=== PATIENT | female | born 1960 | race Caucasian/White ===

== ENCOUNTER 2019-11-17 13:35 | Emergency (ER) | payer OTHER ==
[~2019-11-17] VITALS: Ht 162.6 cm; Wt 65.8 kg
[2019-11-17 16:17] LABS: BASOPHILS 1.5 % (0.0-2.0); EOSINOPHILS 0.8 % (0.0-3.0); HEMATOCRIT 41.1 % (37.0-47.0); HEMOGLOBIN 13.8 gm/dL (12.0-15.0); LYMPHOCYTES 27.6 % (24.0-44.0); MCH 30.6 pg (26.0-34.0); MCHC 33.5 g/dL (28.0-37.0); MCV 91.4 fL (80.0-100.0); MONOCYTES 10.2 % (1.0-8.0); PLATELET COUNT 213 thou/uL (150-400); POLYS 59.9 % (36.0-66.0); RDW 12.6 % (10.5-14.5); WBC 6.7 thou/uL (4.0-11.0)
[2019-11-17 16:29] LABS: ANION GAP 9 mmol/L (7-16); BUN 12 mg/dL (7-18); CALCIUM 9.1 mg/dL (8.5-10.1); CHLORIDE 104 mmol/L (98-107); CO2 25 mmol/L (21-32); CREATININE 0.8 mg/dL (0.6-1.0); GLUCOSE 86 mg/dL (74-106); POTASSIUM 4.1 mmol/L (3.5-5.1); SODIUM 138 mmol/L (136-145)
[2019-11-17 16:40] LABS: APTT 25.7 Seconds (24.5-32.8); PROTIME 10.2 Seconds (9.3-11.4)
[2019-11-17 16:45] LABS: DIRECT BILIRUBIN < 0.1 mg/dL (<0.1-0.2); SGOT 29 U/L (15-37); SGPT 26 U/L (30-65); TOTAL BILIRUBIN 0.5 mg/dL (0.2-1.0); TOTAL PROTEIN 7.1 g/dL (6.4-8.2)
[2019-11-17 21:08] LABS: HEMATOCRIT 37.3 % (37.0-47.0); HEMOGLOBIN 12.8 gm/dL (12.0-15.0); MCH 31.2 pg (26.0-34.0); MCHC 34.3 g/dL (28.0-37.0); RBC 4.1 mil/uL (4.20-5.00); RDW 12.7 % (10.5-14.5); WBC 9.5 thou/uL (4.0-11.0)
[2019-11-17 21:21] LABS: CALCIUM 8.5 mg/dL (8.5-10.1); CREATININE 0.9 mg/dL (0.6-1.0)
[2019-11-17 21:23] LABS: FIBRINOGEN 265.3 mg/dL (210-360); PROTIME 10.7 Seconds (9.3-11.4)
[2019-11-17 21:24] LABS: ALBUMIN 3.4 g/dL (3.4-5.0); TOTAL BILIRUBIN 0.4 mg/dL (0.2-1.0); TOTAL PROTEIN 6.4 g/dL (6.4-8.2)
[2019-11-17] MEDS ORDERED: TRAMADOL 50 MG50 MG PO (21:52)
[2019-11-17] MEDS ORDERED: NAPROSYN500 MG PO (21:52)
[2019-11-17 22:10] VITALS: BP 117/52
--- NOTE | 2019-11-18 08:25 | EKG ---
[facility] [place] [address] ELECTROCARDIOGRAM REPORT Name: DENYS DUEÑAS Room #: DEP [facility]#: [id number] Admission: 11/17/19 Attend Phys: Discharge: 11/17/19 Date of : 56 Report #: [id number] THIS REPORT FOR: cc: FAM - Family physician unknown FAM - Family physician unknown Pepito Alfredo MD [facility] THIS REPORT FOR: //name// [facility] ED Test Date: 2019-11-17 Test Time: 15:07:45 Pat Name: DENYS DUEÑAS Department: Room: Gender: Sales Director: [email or web address] : 1960 Requested By: Samir Gutierrez Order Number: [id number] MD: Pepito Alfredo Measurements Intervals [place] Rate: 74 P: 79 LA: 143 QRS: 74 QRSD: 214 T: 42 QT: 407 QTc: 452 Interpretive Statements Sinus rhythm No significant abnormality No previous ECG available for comparison Electronically Signed On 11-18-2019 8:22:59 CDT by Pepito Alfredo [email or web address] <ELECTRONICALLY SIGNED> By: Pepito Alfredo MD, [facility] 11/18/1922 1507 [id number] Pepito Alfredo MD, FACC /EPI
== END 2019-11-17 22:19 | disposition home or self-care (01) ==
LOC: ER 13:35
PROVIDERS: Emergency Medicine
DX: S60.562A Insect bite (nonvenomous) of left hand, initial encounter (principal); L03.114 Cellulitis of left upper limb; F12.90 Cannabis use, unspecified, uncomplicated; Z88.8 Allergy status to other drugs, medicaments and biological substances; W57.XXXA Bitten or stung by nonvenomous insect and other nonvenomous arthropods, initial encounter; Y93.H2 Activity, gardening and landscaping; Y92.096 Garden or yard of other non-institutional residence as the place of occurrence of the external cause; Y99.9 Unspecified external cause status